=== PATIENT | male | born 1960 | race African-American/Black ===

== ENCOUNTER 2018-07-21 15:17 | Emergency (ER) | payer OTHER, SELFPAY ==
[2018-07-21 17:05] LABS: Clarity Clear (Clear); Leukocyte Negative (Negative); Nitrite Negative (Negative)
[2018-07-21 17:06] LABS: Bilirubin Negative (Negative); Blood, Urine Negative (Negative); Glucose, Urine (Dipstick) 500 mg/dL (Negative); Protein, Urine (Dipstick) Negative (Neg-Trace); Urobilinogen 0.2 mg/dL (0.2-1.0)
[2018-07-21 19:59] LABS: Clarity Cloudy (Clear); Glucose, Urine (Dipstick) 500 mg/dL (Negative); Leukocyte Negative (Negative); Nitrite Negative (Negative); Protein, Urine (Dipstick) 30 mg/dL (Neg-Trace); Specific Gravity, Urine 1.015 (1.005-1.030)
[2018-07-21 20:00] LABS: Bacteria/HPF None Seen HPF (None Seen); Bilirubin Negative (Negative); Blood, Urine Large (Negative); Crystals/HPF None Seen HPF (Negative); Hyaline Casts/LPF NONE SEEN LPF (0-3 Hyaline); Other Casts/LPF None Seen LPF (0-3 Hyaline); Oval Fat Bodies/HPF None Seen HPF (None Seen); RBC/HPF GREATER THAN 50-TNTC HPF (0-3); Renal Epithelial None Seen HPF (0-3); Sperm/HPF None Seen HPF (None Seen); Squamous Epithelial None Seen HPF (0-3); Transitional Epithelial NONE SEEN HPF (0-3); Trichomonas/HPF None Seen HPF (None Seen); Urobilinogen 0.2 mg/dL (0.2-1.0); WBC/HPF None Seen HPF (0-3); Yeast-All Forms None Seen HPF (None Seen)
[2018-07-21] MEDS ORDERED: Sulfameth/Trimethoprim DS 800-160mg TAB ONE (20:11)
== END 2018-07-21 20:15 | disposition home or self-care (01) ==
LOC: BURERS 15:17
DX: N40.1 Benign prostatic hyperplasia with lower urinary tract symptoms (principal); R33.8 Other retention of urine; R31.9 Hematuria, unspecified; E11.9 Type 2 diabetes mellitus without complications; F17.210 Nicotine dependence, cigarettes, uncomplicated; Z79.84 Long term (current) use of oral hypoglycemic drugs; Z79.82 Long term (current) use of aspirin
CPT/HCPCS: 51702; 81003; 81015; 87086

== ENCOUNTER 2018-08-03 10:04 | Emergency (ER) | payer SELFPAY ==
[2018-08-03] MEDS ORDERED: Morphine 4 MG/ML VIAL ONE (11:31)
[2018-08-03 11:57] LABS: Bilirubin Small (Negative); Blood, Urine Large (Negative); Clarity Turbid (Clear); Glucose, Urine (Dipstick) Negative (Negative); Leukocyte Negative (Negative); Nitrite Negative (Negative); Protein, Urine (Dipstick) > or equal to 300 mg/dL (Neg-Trace); Urobilinogen 0.2 mg/dL (0.2-1.0); pH, Urine 7.5 (5.0-9.0)
[2018-08-03 11:58] LABS: Bacteria/HPF 4+ HPF (None Seen); RBC/HPF GREATER THAN 50-TNTC HPF (0-3); Squamous Epithelial 0-3 HPF (0-3); WBC/HPF 0-3 HPF (0-3)
[2018-08-03] MEDS ORDERED: Lorazepam 2 MG/ML VIAL ONE (12:00)
[2018-08-03 12:10] LABS: #Basophils 0.2 thou/uL (0.0-0.2); #Lymphocytes 0.7 thou/uL (1.20-3.40); #Monocytes 1.3 thou/uL (0.11-0.59); #Neutrophils 9.2 thou/uL (1.40-6.50); %Basophils 1.4 % (0.0-1.0); %Eosinophils 0.1 % (0.0-10.0); %Lymphocytes 6.4 % (21.0-51.0); %Monocytes 11.2 % (0.0-10.0); %Neutrophils 80.8 % (42.0-75.0); Hemoglobin 10.4 g/dL (14.0-18.0); Mean Corpuscular HGB CONC 33.1 g/dL (32.0-36.0); Mean Corpuscular Hemoglobin 27.5 pg (27.0-31.0); Mean Corpuscular Volume 82.9 fL (78.0-98.0); Mean Platelet Volume 6.8 fL (7.4-10.4); Platelet Count 249 thou/uL (130-400); RBC Distribution Width 12.4 % (11.5-14.5); Red Blood Cell (RBC) Count 3.78 mill/uL (4.70-6.10); White Blood Cell (WBC) Count 11.3 thou/uL (4.8-10.8)
[2018-08-03 12:31] LABS: Anion Gap 29 mmol/L (10-20); BUN (Urea Nitrogen) 113 mg/dL (8.4-25.7); Calc. Creatinine Clearance 0 mL/min (70-130); Calcium 9.5 mg/dL (7.8-10.44); Carbon Dioxide 14 mmol/L (22-29); Chloride 97 mmol/L (98-107); Estimated GFR-MDRD 4; Glucose 208 mg/dL (70-105); Sodium 133 mmol/L (136-145)
[2018-08-03 12:34] LABS: Potassium 6.6 mmol/L (3.5-5.1)
[2018-08-03] MEDS ORDERED: Calcium Chloride 1 GM/10 ML Abboject SYRINGE ONE (13:08)
[2018-08-03] MEDS ORDERED: Dextrose 50% Abboject 50 ML SYRINGE ONE (13:08)
[2018-08-03] MEDS ORDERED: Sodium Bicarb 50 MEQ/50 ML Abboject 8.4% SYRINGE ONE (13:08)
[2018-08-03] MEDS ORDERED: Insulin Regular 300 UNITS/3 ML VIAL ONE (13:08)
--- NOTE | 2018-08-03 13:50 | CT ---
CT ABDOMEN AND PELVIS WITHOUT CONTRAST: Date: 08/03/[address] of the abdomen and pelvis was done without oral or IV contrast following difficulty in pass ing a catheter into the urinary bladder. Axial slices were acquired, then coronal and sagittal recons tructions were done. FINDINGS: The lung bases are clear. The liver, spleen, pancreas, gallbladder, adrenal glands, and abdominal aor ta showed no acute findings within the limitations of a noncontrast study. There is very slight dilation of the collecting systems of each kidney, probably secondary to the dis tended urinary bladder. See comments below. There is a 1.5 cm rounded low density in the middle third of the left kidney. Statistically, this is most likely a cyst, but ultrasound would be needed to rul e out mass. There is a moderate amount of fecal material in the right colon. There is no sign of colonic obstruct ion. The small bowel is not dilated. No free air or free fluid was seen. CT of the pelvis was remarkable for a markedly dilated urinary bladder. The prostate is quite large, measuring about 6.7 cm in diameter. A Silva catheter has been placed and the balloon is slightly infl ated, but is still within the confines of the prostate. Some soft tissue density is seen within the u rinary bladder. I do not know if this is a tumor if is perhaps debris or bleeding from recent instrum entation. No free fluid is seen in the pelvis. Degenerative changes are present in the patient's lumb ar spine. The patient's spinal canal is rather small in general, especially at L2-L3. IMPRESSION: 1. Markedly enlarged prostate with urinary retention. Bladder is markedly distended. 2. Silva catheter introduced, but balloon is currently within the substance of the prostate. The tip of the catheter does not clearly enter the urinary bladder. 3. Soft tissue density within the bladder. Debris versus blood versus tumor. Urological referral is needed. 4. Other findings as listed above. Case discussed with Dr. Boss at 1147 hours on 08/03/18. CODE CR. POS: HOME
[2018-08-03 14:46] LABS: Anion Gap 21 mmol/L (10-20); BUN (Urea Nitrogen) 96 mg/dL (8.4-25.7); Calc. Creatinine Clearance 0 mL/min (70-130); Calcium 10.3 mg/dL (7.8-10.44); Carbon Dioxide 18 mmol/L (22-29); Chloride 105 mmol/L (98-107); Estimated GFR-MDRD 7; Glucose 182 mg/dL (70-105); Potassium 5.7 mmol/L (3.5-5.1); Sodium 138 mmol/L (136-145)
== END 2018-08-03 15:04 | disposition short-term general hospital (02) ==
LOC: BURERS 10:04
DX: N13.9 Obstructive and reflux uropathy, unspecified (principal); N17.9 Acute kidney failure, unspecified; E11.9 Type 2 diabetes mellitus without complications; F17.210 Nicotine dependence, cigarettes, uncomplicated; Z79.899 Other long term (current) drug therapy; Z79.82 Long term (current) use of aspirin
CPT/HCPCS: 51702; 74176; 81003; 81015; 85025; 93005; 96361; 96372; 96374; 96375; J1815; J2060; J2270

== ENCOUNTER 2021-10-06 12:53 | Emergency (ER) | payer MEDICARE, SELFPAY | END 2021-10-06 14:20 | disposition home or self-care (01) | LOC: BURERS 12:53 | DX: M25.532 Pain in left wrist (principal); E11.9 Type 2 diabetes mellitus without complications; F17.210 Nicotine dependence, cigarettes, uncomplicated; Z79.84 Long term (current) use of oral hypoglycemic drugs | CPT/HCPCS: 36415; 84550 ==